=== PATIENT | female | born 1995 | race Caucasian/White ===

== ENCOUNTER → 2018-05-18 | Outpatient (CLI) | payer MEDICAID ==
[2018-05-18 14:01] LABS: THYROID STIMULATING HORMONE 0.914 uIU/ML (0.358-3.740)
[2018-05-18 14:08] LABS: PROLACTIN 10.9 NG/ML
[2018-05-21 00:07] LABS: DEHYDROEPIANDROSTERONE SULFATE 476.8 ug/dL (110.0-431.7); INSULIN FREE 12 uU/mL (.); INSULIN TOTAL2 12 uU/mL (.); TESTOSTERONE FREE (DIRECT) 3.9 pg/mL (0.0-4.2)
== END ==
LOC: M SMT 09:47
DX: L68.0 Hirsutism (principal)
CPT/HCPCS: 84146

== ENCOUNTER → 2019-07-12 | Outpatient (CLI) | payer BC, MEDICAID ==
[2019-07-12 15:21] LABS: HEPATITIS C VIRUS ABY INDEX < 0.0 INDEX (<0.8); HIV 1&2 SCREEN CENTAUR NEGATIVE (NEGATIVE)
== END ==
LOC: M PLALAB 11:05
PROVIDERS: ATTEND Advanced Practice Midwife
DX: Z11.3 Encounter for screening for infections with a predominantly sexual mode of transmission (principal)

== ENCOUNTER → 2019-07-12 | Outpatient (REF) | payer BC, MEDICAID | LOC: M SFHCPLAZ 09:28 | PROVIDERS: ATTEND Advanced Practice Midwife | DX: Z12.4 Encounter for screening for malignant neoplasm of cervix (principal); Z11.3 Encounter for screening for infections with a predominantly sexual mode of transmission ==

== ENCOUNTER → 2021-03-13 | Outpatient (REF) | payer BC | LOC: M PLALAB 15:59 | PROVIDERS: ATTEND Advanced Practice Midwife | DX: Z12.4 Encounter for screening for malignant neoplasm of cervix (principal) ==

== ENCOUNTER → 2022-07-08 | Outpatient (CLI) | payer BC, MEDICARE ==
[2022-07-08 17:24] LABS: HEMATOCRIT 44.4 % (36.0-47.0); HEMOGLOBIN 14.1 g/dl (12.0-15.5); MEAN CORPUSCULAR HEMOGLOBIN 29.8 pg (27.0-33.0); MEAN CORPUSCULAR HGB CONC 31.8 g/dl (32.0-36.5); MEAN CORPUSCULAR VOLUME 93.9 fl (80.0-96.0); PLATELET COUNT, AUTOMATED 338 10^3/uL (150-450); RED BLOOD COUNT 4.73 10^6/uL (4.00-5.40); WHITE BLOOD COUNT 8.8 10^3/uL (4.0-10.0)
[2022-07-08 17:47] LABS: CHOLESTEROL RISK RATIO 3.53 (<5); HDL CHOLESTEROL 47.3 MG/DL (>40); LDL CHOLESTEROL 103.1 MG/DL (<100)
[2022-07-08 17:48] LABS: THYROID STIMULATING HORMONE 1.541 uIU/ML (0.55-4.78)
== END ==
LOC: M PLALAB 14:47
PROVIDERS: ATTEND Advanced Practice Midwife
DX: R63.5 Abnormal weight gain (principal); Z13.220 Encounter for screening for lipoid disorders; Z12.4 Encounter for screening for malignant neoplasm of cervix
CPT/HCPCS: 36415; 80061; 84443; 85027; 87624; G0123

== ENCOUNTER → 2023-07-25 | Outpatient (REF) | payer OTHER, BC | LOC: M SFHCWAGY 18:05 | PROVIDERS: ATTEND Advanced Practice Midwife | DX: Z12.4 Encounter for screening for malignant neoplasm of cervix (principal) ==

== ENCOUNTER → 2024-07-27 | Outpatient (REF) | payer OTHER | LOC: M SFHCWAGY 17:47 | PROVIDERS: ATTEND Advanced Practice Midwife | DX: Z12.4 Encounter for screening for malignant neoplasm of cervix (principal) ==

== ENCOUNTER → 2025-03-24 | Outpatient (CLI) | payer OTHER | LOC: M RAD 11:49 | PROVIDERS: ATTEND Registered Nurse | DX: M79.661 Pain in right lower leg (principal); M79.662 Pain in left lower leg ==